=== PATIENT | female | born 1970 | race Caucasian/White ===

== ENCOUNTER 2020-06-24 12:30 | Emergency (ER) | payer MEDICAID, SELFPAY ==
[2020-06-24 12:32] VITALS: BP 135/81; PULSE 73; RESP 17; TEMP 36.7; O2SAT 97; BMI 19.8
[2020-06-24 12:45] VITALS: BP 135/81; PULSE 73; RESP 17; TEMP 36.7; O2SAT 97; BMI 33.5
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
[2020-06-24 14:13] VITALS: BP 135/81; PULSE 73; RESP 17; TEMP 36.7; O2SAT 97
== END 2020-06-24 14:24 | disposition home or self-care (01) ==
PROVIDERS: Emergency Provider Nurse Practitioner; PCP Nurse Practitioner Family
DX: T26.11XA Burn of cornea and conjunctival sac, right eye, initial encounter (principal); Z88.0 Allergy status to penicillin
CPT/HCPCS: 99202; G0463

== ENCOUNTER 2020-07-10 15:58 | Emergency (ER) | payer MEDICAID, SELFPAY ==
[2020-07-10 16:14] VITALS: BP 156/98; PULSE 87; RESP 20; TEMP 36.6; O2SAT 98; BMI 33.1
[2020-07-10 16:17] LABS: Apearance,Urine Clear (Clear); Color,Urine Yellow (Yellow)
[2020-07-10 16:18] LABS: Bilirubin,Urine Negative (Negative); Blood, Urine Negative (Negative); Glucose,Urine (UA) Negative (Negative); Ketones,Urine Negative (Negative); Protein,Urine Negative (Negative); UTC Leukocyte Esterase,Urine Negative (Negative); UTC Nitrate,Urine Negative (Negative); Urobilinogen,Urine 0.2 EU/dl (0.2)
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
[2020-07-10 16:32] VITALS: BP 150/92; PULSE 83; RESP 18; TEMP 36.6
== END 2020-07-10 16:49 | disposition home or self-care (01) ==
PROVIDERS: Emergency Provider Nurse Practitioner Family; PCP Nurse Practitioner Family
DX: N39.0 Urinary tract infection, site not specified (principal); E11.9 Type 2 diabetes mellitus without complications; Z98.84 Bariatric surgery status; Z88.0 Allergy status to penicillin
CPT/HCPCS: 81003; 99202; G0463